=== PATIENT | female | born 1995 | race African-American/Black ===

== ENCOUNTER 2018-04-07 17:29 | Emergency (ER) | payer OTHER, MEDICAID ==
[~2018-04-07] VITALS: Ht 162.6 cm; Wt 81.7 kg
[2018-04-07 19:01] LABS: ABSOLUTE BASOPHILS 0.1 thou/uL (0.0-0.2); ABSOLUTE LYMPHOCYTES 1.3 thou/uL (0.8-5.3); ABSOLUTE MONOCYTES 0.7 thou/uL (0.0-1.2); ABSOLUTE NEUTROPHILS 9.6 thou/uL (1.6-8.1); EOSINOPHILS 0.3 %; HEMATOCRIT 36.6 % (37.0-47.0); HEMOGLOBIN 11.6 gm/dL (12.0-15.0); LYMPHOCYTES 10.8 %; MCH 21.3 pg (26.0-34.0); MCHC 31.7 g/dL (28.0-37.0); MCV 67.2 fL (80.0-100.0); MONOCYTES 5.7 %; MPV 7.4 fl. (7.2-11.1); NUCLEATED RBCS 0 /100WBC; PLATELET COUNT* 391 thou/uL (150-400); POLYS 82.2 %; RBC 5.46 mil/uL (4.20-5.00); RDW-CV 17.7 % (10.5-14.5); WBC 11.7 thou/uL (4.0-11.0)
[2018-04-07 19:06] LABS: CALCIUM 9.4 mg/dL (8.5-10.1); CREATININE 0.9 mg/dL (0.6-1.3); POTASSIUM 4.1 mmol/L (3.5-5.1)
[2018-04-07 19:11] LABS: ALBUMIN 3.5 g/dL (3.4-5.0); TOTAL BILIRUBIN 0.2 mg/dL (<0.1-1.0); TOTAL PROTEIN 8.5 g/dL (6.4-8.2)
[2018-04-07 19:44] LABS: URINE BILIRUBIN NEGATIVE (Negative); URINE BLOOD NEGATIVE (Negative); URINE CLARITY CLEAR; URINE COLOR YELLOW; URINE GLUCOSE-RANDOM NEGATIVE (Negative); URINE KETONES NEGATIVE (Negative); URINE LEUKOCYTES-REFLEX TRACE (Negative); URINE NITRITE-REFLEX NEGATIVE (Negative); URINE PROTEIN 1+ (Negative); URINE SPECIFIC GRAVITY >= 1.030 (1.005-1.030); URINE UROBILINOGEN 0.2 E.U./dl (0.2-1.0)
[2018-04-07 19:51] LABS: SQUAMOUS >10 Many /LPF (0-3)
[2018-04-07 19:52] LABS: CASTS None Seen /LPF (None Seen); CRYSTALS None Seen /LPF (None Seen); MUCUS 0-3 Light strn/LPF (None Seen); URINE RBC None Seen /HPF (0-2); URINE WBC-REFLEX 6-15 Few /HPF (0-5)
[2018-04-07] MEDS ORDERED: SULFAMETHOXAZO473 ML PO (20:13)
[2018-04-07 20:23] LABS: PLATELET ESTIMATE ADEQUATE
[2018-04-07 20:25] LABS: MICROCYTES 2+
[2018-04-07 20:26] LABS: HYPOCHROMASIA 1+
[2018-04-07 20:27] VITALS: BP 136/84
== END 2018-04-07 20:28 | disposition home or self-care (01) ==
LOC: M.ERS 17:29
PROVIDERS: Physician Assistant Surgical
DX: N39.0 Urinary tract infection, site not specified (principal); R19.7 Diarrhea, unspecified; I10 Essential (primary) hypertension; Z88.1 Allergy status to other antibiotic agents

== ENCOUNTER 2018-05-05 15:31 | Emergency (ER) | payer OTHER, MEDICAID ==
[~2018-05-05] VITALS: Ht 162.6 cm; Wt 90.7 kg
[~2018-05-05 15:31] MED LIST: SULFAMETHOXAZO473 ML PO
[2018-05-05] MEDS ORDERED: DEPO-PROVER150 MG/M1 IM (15:45)
[2018-05-05] MEDS ORDERED: LISINOPRIL10 MG PO (15:45)
[2018-05-05 16:08] LABS: URINE BILIRUBIN NEGATIVE (Negative); URINE BLOOD NEGATIVE (Negative); URINE CLARITY HAZY; URINE COLOR YELLOW; URINE GLUCOSE-RANDOM NEGATIVE (Negative); URINE KETONES NEGATIVE (Negative); URINE LEUKOCYTES-REFLEX 1+ (Negative); URINE NITRITE-REFLEX NEGATIVE (Negative); URINE PROTEIN TRACE (Negative); URINE SPECIFIC GRAVITY >= 1.030 (1.005-1.030)
[2018-05-05 16:17] LABS: SQUAMOUS >10 Many /LPF (0-3); URINE RBC None Seen /HPF (0-2); URINE WBC-REFLEX 6-15 Few /HPF (0-5)
[2018-05-05 16:18] LABS: CASTS None Seen /LPF (None Seen); CRYSTALS None Seen /LPF (None Seen); MUCUS 0-3 Light strn/LPF (None Seen)
[2018-05-05 16:36] LABS: ABSOLUTE LYMPHOCYTES 2.9 thou/uL (0.8-5.3); ABSOLUTE MONOCYTES 0.6 thou/uL (0.0-1.2); ABSOLUTE NEUTROPHILS 6.3 thou/uL (1.6-8.1); BASOPHILS 0.4 %; EOSINOPHILS 0.4 %; HEMATOCRIT 34.8 % (37.0-47.0); HEMOGLOBIN 11.1 gm/dL (12.0-15.0); LYMPHOCYTES 29.8 %; MCH 21.3 pg (26.0-34.0); MCHC 31.8 g/dL (28.0-37.0); MCV 66.9 fL (80.0-100.0); MONOCYTES 5.7 %; MPV 7.6 fl. (7.2-11.1); NUCLEATED RBCS 0 /100WBC; PLATELET COUNT* 382 thou/uL (150-400); POLYS 63.7 %; RDW-CV 17.1 % (10.5-14.5); WBC 9.8 thou/uL (4.0-11.0)
[2018-05-05 16:40] LABS: ALBUMIN 3.4 g/dL (3.4-5.0); CALCIUM 9.1 mg/dL (8.5-10.1); POTASSIUM 3.7 mmol/L (3.5-5.1); TOTAL BILIRUBIN 0.1 mg/dL (<0.1-1.0); TOTAL PROTEIN 7.9 g/dL (6.4-8.2)
[2018-05-05 17:09] LABS: ANISOCYTOSIS 1+; HYPOCHROMASIA 1+; MICROCYTES 1+; PLATELET ESTIMATE ADEQUATE
[2018-05-05] MEDS ORDERED: BACTRIM DS TAB1 EACH PO (17:09)
[2018-05-05 17:26] VITALS: BP 141/76
== END 2018-05-05 17:27 | disposition home or self-care (01) ==
LOC: M.ERS 15:31
PROVIDERS: Nurse Practitioner Family
DX: N39.0 Urinary tract infection, site not specified (principal); R19.7 Diarrhea, unspecified; I10 Essential (primary) hypertension; Z88.1 Allergy status to other antibiotic agents

== ENCOUNTER 2018-09-14 17:24 | Emergency (ER) | payer BC, OTHER, MEDICAID ==
[~2018-09-14] VITALS: Ht 160 cm; Wt 95.3 kg
[~2018-09-14 17:24] MED LIST changes: +BACTRIM DS TAB1 EACH PO; +DEPO-PROVER150 MG/M1 IM; +LISINOPRIL10 MG PO
[2018-09-14] MEDS ORDERED: IRON325 PO (17:33)
[2018-09-14 17:57] LABS: ABSOLUTE LYMPHOCYTES 2.7 thou/uL (0.8-5.3); ABSOLUTE MONOCYTES 0.6 thou/uL (0.0-1.2); ABSOLUTE NEUTROPHILS 3.9 thou/uL (1.6-8.1); BASOPHILS 0.3 %; EOSINOPHILS 0.5 %; HEMATOCRIT 39.8 % (37.0-47.0); HEMOGLOBIN 13.5 gm/dL (12.0-15.0); MCH 25.1 pg (26.0-34.0); MCHC 33.9 g/dL (28.0-37.0); MCV 74.2 fL (80.0-100.0); MONOCYTES 8.3 %; MPV 7.6 fl. (7.2-11.1); NUCLEATED RBCS 0 /100WBC; PLATELET COUNT* 355 thou/uL (150-400); POLYS 53.9 %; RBC 5.37 mil/uL (4.20-5.00); RDW-CV 18.5 % (10.5-14.5); WBC 7.3 thou/uL (4.0-11.0)
[2018-09-14 18:09] LABS: INR 0.9; PROTIME 9.7 Seconds (9.20-11.50)
[2018-09-14 18:13] LABS: ALBUMIN 3.3 g/dL (3.4-5.0); ALKALINE PHOSPHATASE 110 U/L (46-116); ANION GAP 9 mmol/L (7-16); BUN 8 mg/dL (7-18); CALCIUM 9.5 mg/dL (8.5-10.1); CHLORIDE 102 mmol/L (98-107); CO2 27 mmol/L (21-32); CREATININE 0.9 mg/dL (0.6-1.3); GLUCOSE 174 mg/dL (70-99); SGOT 18 U/L (15-37); SGPT 26 U/L (30-65); SODIUM 138 mmol/L (136-145); TOTAL PROTEIN 8.2 g/dL (6.4-8.2); TROPONIN-I LEVEL <0.06 ng/mL (<0.06)
[2018-09-14 18:14] LABS: TOTAL BILIRUBIN < 0.1 mg/dL (<0.1-1.0)
[2018-09-14 18:14] LABS: URINE BILIRUBIN NEGATIVE (Negative); URINE BLOOD TRACE (Negative); URINE CLARITY CLEAR; URINE COLOR YELLOW; URINE GLUCOSE-RANDOM NEGATIVE (Negative); URINE KETONES NEGATIVE (Negative); URINE LEUKOCYTES-REFLEX TRACE (Negative); URINE NITRITE-REFLEX NEGATIVE (Negative); URINE PROTEIN 2+ (Negative); URINE UROBILINOGEN 0.2 E.U./dl (0.2-1.0)
[2018-09-14 18:17] LABS: POTASSIUM 2.9 mmol/L (3.5-5.1)
[2018-09-14 18:20] LABS: AMP/METHAMP Negative (Negative); BARBITURATES Negative (Negative); BENZODIAZEPINES Negative (Negative); COCAINE Negative (Negative); METHADONE Negative (Negative); OPIATES Negative (Negative); PCP Negative (Negative); THC Negative (Negative)
[2018-09-14 18:34] LABS: BACTERIA-REFLEX 1-9 Few /HPF (None Seen); CASTS None Seen /LPF (None Seen); CRYSTALS None Seen /LPF (None Seen); SQUAMOUS 4-10 Moderate /LPF (0-3); URINE RBC None Seen /HPF (0-2); URINE WBC-REFLEX 0-5 Rare /HPF (0-5)
[2018-09-14] MEDS ORDERED: POTASSIUM20 PO (19:24)
[2018-09-14 19:50] VITALS: BP 128/78
--- NOTE | 2018-09-15 17:02 | EKG ---
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
== END 2018-09-14 19:50 | disposition home or self-care (01) ==
LOC: M.ERS 17:24
PROVIDERS: Nurse Practitioner Family
DX: E87.6 Hypokalemia (principal); R07.89 Other chest pain; I10 Essential (primary) hypertension; Z88.1 Allergy status to other antibiotic agents; Z86.2 Personal history of diseases of the blood and blood-forming organs and certain disorders involving the immune mechanism

== ENCOUNTER 2019-02-02 11:33 | Emergency (ER) | payer BC ==
[~2019-02-02] VITALS: Ht 162.6 cm; Wt 105.7 kg
[~2019-02-02 11:33] MED LIST changes: +IRON325 PO; +POTASSIUM20 PO
[2019-02-02 12:10] LABS: ABSOLUTE BASOPHILS 0.1 thou/uL (0.0-0.2); ABSOLUTE LYMPHOCYTES 2.3 thou/uL (0.8-5.3); ABSOLUTE MONOCYTES 0.4 thou/uL (0.0-1.2); ABSOLUTE NEUTROPHILS 4.1 thou/uL (1.6-8.1); BASOPHILS 1.1 %; EOSINOPHILS 0.5 %; HEMATOCRIT 42.2 % (37.0-47.0); LYMPHOCYTES 33.5 %; MCH 26.4 pg (26.0-34.0); MCHC 33.1 g/dL (28.0-37.0); MCV 79.9 fL (80.0-100.0); MONOCYTES 5.9 %; MPV 7.2 fl. (7.2-11.1); NUCLEATED RBCS 0 /100WBC; PLATELET COUNT* 379 thou/uL (150-400); RBC 5.28 mil/uL (4.20-5.00); RDW-CV 14.3 % (10.5-14.5); WBC 6.9 thou/uL (4.0-11.0)
[2019-02-02 12:17] LABS: ANION GAP 13 mmol/L (7-16); BUN 7 mg/dL (7-18); CALCIUM 9.3 mg/dL (8.5-10.1); CHLORIDE 103 mmol/L (98-107); CO2 23 mmol/L (21-32); GLUCOSE 100 mg/dL (70-99); POTASSIUM 3.3 mmol/L (3.5-5.1); SODIUM 139 mmol/L (136-145)
[2019-02-02 12:26] LABS: ALBUMIN 3.5 g/dL (3.4-5.0); ALKALINE PHOSPHATASE 121 U/L (46-116); SGOT 14 U/L (15-37); SGPT 22 U/L (30-65); TOTAL BILIRUBIN 0.3 mg/dL (<0.1-1.0); TOTAL PROTEIN 8.3 g/dL (6.4-8.2); TROPONIN-I LEVEL <0.06 ng/mL (<0.06)
[2019-02-02 12:53] LABS: URINE BILIRUBIN NEGATIVE (Negative); URINE BLOOD NEGATIVE (Negative); URINE CLARITY CLEAR; URINE COLOR YELLOW; URINE GLUCOSE-RANDOM NEGATIVE (Negative); URINE KETONES NEGATIVE (Negative); URINE LEUKOCYTES-REFLEX 1+ (Negative); URINE NITRITE-REFLEX NEGATIVE (Negative); URINE PROTEIN 1+ (Negative); URINE UROBILINOGEN 0.2 E.U./dl (0.2-1.0)
[2019-02-02 13:06] LABS: BACTERIA-REFLEX 1-9 Few /HPF (None Seen); CASTS None Seen /LPF (None Seen); CRYSTALS None Seen /LPF (None Seen); MUCUS 0-3 Light strn/LPF (None Seen); SQUAMOUS >10 Many /LPF (0-3); URINE RBC 0-2 Rare /HPF (0-2); URINE WBC-REFLEX 0-5 Rare /HPF (0-5)
[2019-02-02 13:40] LABS: AMP/METHAMP Negative (Negative); BARBITURATES Negative (Negative); BENZODIAZEPINES Negative (Negative); COCAINE Negative (Negative); METHADONE Negative (Negative); OPIATES Negative (Negative); PCP Negative (Negative); THC Negative (Negative)
--- NOTE | 2019-02-02 15:01 | EKG ---
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1995 Requested By: [place] Order Number: [id number] MD: Moisés Oliver Measurements Intervals [place] Rate: 115 P: 61 [place]: 128 QRS: 48 QRSD: 78 T: 19 QT: 321 QTc: 444 Interpretive Statements Sinus tachycardia Probable left atrial enlargement Baseline wander in lead(s) II,III,aVR,aVF,V3,V5 Compared to ECG 09/14/2018 17:29:52 No significant changes Electronically Signed On 02-02-2019 15:01:06 CDT by Moisés Oliver [email or web address] <ELECTRONICALLY SIGNED> By: Moisés Oliver MD, [facility] 02/02/19 1501 1143 1143 Moisés Oliver MD, [facility] /EPI
[2019-02-02 15:15] VITALS: BP 152/80
== END 2019-02-02 15:18 | disposition home or self-care (01) ==
LOC: M.ERS 11:33
PROVIDERS: Emergency Medicine; Nurse Practitioner Family
DX: R07.89 Other chest pain (principal); I10 Essential (primary) hypertension; I35.0 Nonrheumatic aortic (valve) stenosis; Z86.2 Personal history of diseases of the blood and blood-forming organs and certain disorders involving the immune mechanism; Z88.1 Allergy status to other antibiotic agents

== ENCOUNTER 2019-07-21 16:31 | Emergency (ER) | payer BC ==
[~2019-07-21] VITALS: Ht 162.6 cm; Wt 99.8 kg
[2019-07-21 16:45] VITALS: BP 155/104
[2019-07-21] MEDS ORDERED: NORVASC 2.5 MG2.5 M1 PO (16:47)
[2019-07-21] MEDS ORDERED: NORCO 5-325 TA1 EAC1 PO (17:31)
== END 2019-07-21 17:45 | disposition home or self-care (01) ==
LOC: M.ERS 16:31
DX: S93.491A Sprain of other ligament of right ankle, initial encounter (principal); I10 Essential (primary) hypertension; Z86.2 Personal history of diseases of the blood and blood-forming organs and certain disorders involving the immune mechanism; Z88.1 Allergy status to other antibiotic agents; W01.0XXA Fall on same level from slipping, tripping and stumbling without subsequent striking against object, initial encounter; Y93.89 Activity, other specified; Y92.89 Other specified places as the place of occurrence of the external cause; Y99.8 Other external cause status

== ENCOUNTER → 2020-09-12 | Outpatient (CLI) | payer BC ==
[~2020-09-12] MED LIST changes: +NORCO 5-325 TA1 EAC1 PO; +NORVASC 2.5 MG2.5 M1 PO
== END ==
LOC: M.LAB 11:11
PROVIDERS: ATTEND Internal Medicine Gastroenterology
DX: Z32.00 Encounter for pregnancy test, result unknown (principal)

== ENCOUNTER 2021-03-10 23:26 | Emergency (ER) | payer OTHER, MEDICAID ==
[~2021-03-10] VITALS: Ht 162.6 cm; Wt 105.2 kg
[2021-03-11 00:01] LABS: URINE BLOOD NEGATIVE (Negative); URINE CLARITY CLEAR; URINE COLOR DARK YELLOW; URINE GLUCOSE-RANDOM NEGATIVE (Negative); URINE KETONES NEGATIVE (Negative); URINE LEUKOCYTES-REFLEX TRACE (Negative); URINE NITRITE-REFLEX NEGATIVE (Negative); URINE PROTEIN 2+ (Negative); URINE SPECIFIC GRAVITY >= 1.030 (1.005-1.030)
[2021-03-11 00:10] LABS: ABSOLUTE BASOPHILS 0.1 thou/uL (0.0-0.2); ABSOLUTE LYMPHOCYTES 2.4 thou/uL (0.8-5.3); ABSOLUTE MONOCYTES 0.5 thou/uL (0.0-1.2); ABSOLUTE NEUTROPHILS 5.6 thou/uL (1.6-8.1); BASOPHILS 1.2 %; EOSINOPHILS 0.5 %; HEMATOCRIT 36.1 % (37.0-47.0); HEMOGLOBIN 11.5 gm/dL (12.0-15.0); LYMPHOCYTES 27.8 %; MCH 22.6 pg (26.0-34.0); MCV 70.5 fL (80.0-100.0); MONOCYTES 5.3 %; MPV 7.3 fl. (7.2-11.1); NUCLEATED RBCS 0 /100WBC; PLATELET COUNT* 353 thou/uL (150-400); POLYS 65.2 %; RBC 5.12 mil/uL (4.20-5.00); RDW-CV 20.2 % (10.5-14.5); WBC 8.6 thou/uL (4.0-11.0)
[2021-03-11 00:12] LABS: URINE BILIRUBIN 1+ (Negative)
[2021-03-11 00:14] LABS: ICTOTEST (BILI CONFIRMATORY) Positive (Negative)
[2021-03-11 00:20] LABS: CALCIUM 9.3 mg/dL (8.5-10.1); CREATININE 1.1 mg/dL (0.6-1.3); POTASSIUM 3.5 mmol/L (3.5-5.1)
[2021-03-11 00:24] LABS: ALBUMIN 3.7 g/dL (3.4-5.0); TOTAL BILIRUBIN 1.2 mg/dL (<0.1-1.0); TOTAL PROTEIN 8.1 g/dL (6.4-8.2)
[2021-03-11 01:07] LABS: CASTS None Seen /LPF (None Seen); MUCUS 0-3 Light strn/LPF (None Seen); SQUAMOUS 4-10 Moderate /LPF (0-3); URINE WBC-REFLEX 0-5 Rare /HPF (0-5)
[2021-03-11 01:08] LABS: BACTERIA-REFLEX 1-9 Few /HPF (None Seen); CRYSTALS None Seen /LPF (None Seen); URINE RBC 0-2 Rare /HPF (0-2)
[2021-03-11 02:24] LABS: ANISOCYTOSIS 2+; HYPOCHROMASIA 1+; MICROCYTES 2+; PLATELET ESTIMATE ADEQUATE; POLYCHROMASIA 2+
[2021-03-11] MEDS ORDERED: ZOFRAN ODT4 MG PO (03:53)
[2021-03-11] MEDS ORDERED: CARAFATE 1 GM TA1 GM PO (03:53)
[2021-03-11] MEDS ORDERED: HYDROCODON-ACE1 EAC7 PO (03:53)
[2021-03-11 04:16] VITALS: BP 166/88
== END 2021-03-11 04:17 | disposition home or self-care (01) ==
LOC: M.ERS 23:26
PROVIDERS: Personal Emergency Response Attendant
DX: K80.50 Calculus of bile duct without cholangitis or cholecystitis without obstruction (principal); R79.89 Other specified abnormal findings of blood chemistry; I10 Essential (primary) hypertension; Z79.899 Other long term (current) drug therapy; Z88.0 Allergy status to penicillin

== ENCOUNTER 2021-03-25 06:55 | Inpatient (IN) | payer BC, OTHER, MEDICAID ==
[~2021-03-25] VITALS: Ht 162.6 cm; Wt 101.2 kg
--- NOTE | ~2021-03-25 | PROC ---
[address] [address] PROCEDURE REPORT Name: MICHAEL ARVIZU Room: [address] IN M.R.#: [id number] Admission: 03/27/21 Attend Phys: Dieter Durham Discharge: 03/29/21 Date of : [birth year] Report #: [id number] THIS REPORT FOR: cc: Umesh Rowan MD, Kevin R. MD [facility],Medical Records Staff ~ For Gi report, please see the Provation report in Perceptive 7 content. By: 0648Medical Records Staff ABBY /KATARZYNA
--- NOTE | ~2021-03-25 | PROC ---
[address] [address] PROCEDURE REPORT Name: MICHAEL ARVIZU Room: [address] IN M.R.#: [id number] Admission: 03/27/21 Attend Phys: Dieter Durham Discharge: Date of : [birth year] Report #: [id number] THIS REPORT FOR: cc: Umesh Rowan MD, Kevin R. MD [facility],Medical Records Staff ~ For GI report, please see the Provation report in Perceptive 7 content. By: 1351Medical Records Staff RONEY /KATARZYNA
[~2021-03-25 06:55] MED LIST changes: +CARAFATE 1 GM TA1 GM PO; +HYDROCODON-ACE1 EAC7 PO; +NORVASC10 MG PO; +ZOFRAN ODT4 MG PO
[2021-03-25 07:49] LABS: HEMATOCRIT 38.3 % (37.0-47.0); HEMOGLOBIN 12.5 gm/dL (12.0-15.0); MCH 23.5 pg (26.0-34.0); MCHC 32.5 g/dL (28.0-37.0); MCV 72.1 fL (80.0-100.0); MPV 8.5 fl. (7.2-11.1); RBC 5.31 mil/uL (4.20-5.00); RDW-CV 19.5 % (10.5-14.5); WBC 3.6 thou/uL (4.0-11.0)
--- NOTE | 2021-03-25 13:35 | EKG ---
[place] [address] ELECTROCARDIOGRAM REPORT Name: MICHAEL ARVIZU Room: [facility]#: [id number] Admission: 03/25/21 Attend Phys: Rodney Troy Discharge: Date of : [birth year] Date of Service: 03/25/21 0747 Report #: [id number] THIS REPORT FOR: //name// 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1995 Requested By: Rodney Troy Order Number: [id number] Marycruz MD: Moisés Oliver Measurements Intervals [place] Rate: 81 P: 78 [place]: 147 QRS: 137 QRSD: 96 T: 147 QT: 363 QTc: 422 Interpretive Statements Sinus rhythm with first degree AV block Right axis deviation Nonspecific T abnormalities, lateral leads Compared to ECG 02/02/2019 11:43:00 Right-axis deviation now present T-wave abnormality now present Sinus tachycardia no longer present Electronically Signed On 03-25-2021 13:35:15 CDT by Moisés Oliver [email or web address] <ELECTRONICALLY SIGNED> By: Moisés Oliver MD, FACC 03/25/21 1335 0747 Moisés Oliver MD, FACC /EPI
[2021-03-25 13:43] VITALS: BP 112/61
[2021-03-25 18:00] VITALS: BP 102/64
[2021-03-25 20:03] VITALS: BP 100/61
[2021-03-26] VITALS: BP 110/70
[2021-03-26 04:37] VITALS: BP 99/62
[2021-03-26 05:07] LABS: PROTIME 10.7 Seconds (9.20-11.50)
[2021-03-26 05:19] LABS: ALBUMIN 2.9 g/dL (3.4-5.0); CALCIUM 8.9 mg/dL (8.5-10.1); MAGNESIUM 1.9 mg/dL (1.8-2.4); PHOSPHORUS* 4.4 mg/dL (2.5-4.9); POTASSIUM 3.5 mmol/L (3.5-5.1); TOTAL BILIRUBIN 1.3 mg/dL (<0.1-1.0); TOTAL PROTEIN 6.7 g/dL (6.4-8.2)
[2021-03-26 05:24] LABS: ABSOLUTE MONOCYTES 0.7 thou/uL (0.0-1.2); ABSOLUTE NEUTROPHILS 4.9 thou/uL (1.6-8.1); BASOPHILS 0.4 %; HEMATOCRIT 29.8 % (37.0-47.0); LYMPHOCYTES 14.9 %; MCH 23.9 pg (26.0-34.0); MCHC 32.7 g/dL (28.0-37.0); MCV 73.2 fL (80.0-100.0); MONOCYTES 10.3 %; MPV 8.9 fl. (7.2-11.1); NUCLEATED RBCS 0 /100WBC; POLYS 74.4 %; RBC 4.07 mil/uL (4.20-5.00); RDW-CV 19.9 % (10.5-14.5); WBC 6.6 thou/uL (4.0-11.0)
[2021-03-26 05:26] LABS: HEMOGLOBIN 9.7 gm/dL (12.0-15.0); PLATELET COUNT* 384 thou/uL (150-400)
[2021-03-26 06:56] VITALS: BP 125/56
[2021-03-26 08:00] VITALS: BP 104/57
[2021-03-26 14:40] LABS: HEMATOCRIT 26.6 % (37.0-47.0); HEMOGLOBIN 8.6 gm/dL (12.0-15.0)
[2021-03-26 21:03] VITALS: BP 115/73
[2021-03-26 23:54] VITALS: BP 104/57
[2021-03-27 04:02] LABS: ABSOLUTE MONOCYTES 0.8 thou/uL (0.0-1.2); ABSOLUTE NEUTROPHILS 5.5 thou/uL (1.6-8.1); BASOPHILS 0.1 %; HEMATOCRIT 22.7 % (37.0-47.0); HEMOGLOBIN 7.3 gm/dL (12.0-15.0); LYMPHOCYTES 13.3 %; MCH 23.7 pg (26.0-34.0); MCV 74.1 fL (80.0-100.0); MONOCYTES 10.6 %; MPV 8.6 fl. (7.2-11.1); NUCLEATED RBCS 0 /100WBC; RBC 3.06 mil/uL (4.20-5.00); RDW-CV 19.1 % (10.5-14.5); WBC 7.3 thou/uL (4.0-11.0)
[2021-03-27 04:08] VITALS: BP 107/54
[2021-03-27 04:18] LABS: PLATELET COUNT* 242 thou/uL (150-400)
[2021-03-27 04:23] LABS: ALBUMIN 2.5 g/dL (3.4-5.0); DIRECT BILIRUBIN 0.7 mg/dL (<0.1-0.3); TOTAL BILIRUBIN 0.9 mg/dL (<0.1-1.0); TOTAL PROTEIN 5.5 g/dL (6.4-8.2)
[2021-03-27 04:33] LABS: ALBUMIN 2.4 g/dL (3.4-5.0); CALCIUM 8.4 mg/dL (8.5-10.1); CREATININE 0.8 mg/dL (0.6-1.3); POTASSIUM 3.9 mmol/L (3.5-5.1); TOTAL BILIRUBIN 0.8 mg/dL (<0.1-1.0); TOTAL PROTEIN 5.9 g/dL (6.4-8.2)
[2021-03-27 09:00] VITALS: BP 117/65
[2021-03-27 13:19] LABS: HEMATOCRIT 22.4 % (37.0-47.0); HEMOGLOBIN 7.2 gm/dL (12.0-15.0)
[2021-03-27 15:40] VITALS: BP 101/62
[2021-03-27 20:00] VITALS: BP 112/69
[2021-03-27 23:49] VITALS: BP 112/67
[2021-03-28 03:42] VITALS: BP 107/63
[2021-03-28 04:30] LABS: ABSOLUTE LYMPHOCYTES 1.7 thou/uL (0.8-5.3); ABSOLUTE MONOCYTES 0.5 thou/uL (0.0-1.2); ABSOLUTE NEUTROPHILS 3.1 thou/uL (1.6-8.1); BASOPHILS 0.4 %; EOSINOPHILS 0.7 %; HEMATOCRIT 21.2 % (37.0-47.0); MCH 24.1 pg (26.0-34.0); MCHC 32.1 g/dL (28.0-37.0); MONOCYTES 9.3 %; MPV 8.4 fl. (7.2-11.1); NUCLEATED RBCS 0 /100WBC; PLATELET COUNT* 259 thou/uL (150-400); POLYS 57.6 %; RBC 2.83 mil/uL (4.20-5.00); RDW-CV 19.8 % (10.5-14.5); WBC 5.3 thou/uL (4.0-11.0)
[2021-03-28 04:45] LABS: CALCIUM 8.6 mg/dL (8.5-10.1); CREATININE 0.8 mg/dL (0.6-1.3); PHOSPHORUS* 2.9 mg/dL (2.5-4.9); POTASSIUM 3.3 mmol/L (3.5-5.1)
[2021-03-28 05:49] LABS: HEMOGLOBIN 6.8 gm/dL (12.0-15.0)
[2021-03-28 09:22] VITALS: BP 120/72; BP 121/79; BP 126/71; BP 129/76
[2021-03-28 09:49] VITALS: BP 120/72
--- NOTE | 2021-03-28 10:30 | PATH ---
[facility] [address] [place] [address] PATHOLOGY RPT PROCEDURE Name: MICHAEL ARVIZU Room: [address] IN .R.#: [id number] Admission: 03/27/21 Date of : [birth year] Discharge: Report #: [id number] Path Case #: [id number] [facility] Accession Number: [id number] . 01 Material submitted: . gallbladder - GALLBLADDER . 01 Clinical history: . LAPAROSCOPIC CHOLECYSTECTOMY WITH GRAMS HYPERBILIRUBINEMIA, CILIARY DYSKINESIA . 02 Diagnosis: Gallbladder, excision: - Mild chronic cholecystitis; negative for malignancy. - Lithiasis. (MLK:rajendra; 03/27/2021) QMS 03/27/2021 [facility]7 Local . 02 Electronically signed: . Igor Blue MD, Pathologist NPI- [id number] . 01 Gross description: . Fixative: Formalin Labeled: Gallbladder Specimen received: Intact gallbladder Dimensions: 7.3 x 3.3 x 3.0 cm Serosa: [place]-oquendo to pink-sloan Lymph node: Not identified Mucosa: Velvety, bile-stained Average wall thickness: 0.1 cm Calculi: Identified displaying a bright yellow and multifaceted appearance Abnormalities: None identified . Loader Machine body, fundus, and the cystic duct margin in cassette A1. (CAA; 03/26/2021) QA/[facility] 03/26/2021 0953 Local . 02 Pathologist provided ICD-10: K80.10 . 02 CPT . 007076 Specimen Comment: A courtesy copy of this report has been sent to [phone] Specimen Comment: [id number] Specimen Comment: Report sent to / DR CHAVEZ Specimen Comment: A duplicate report has been [place] [address] PATHOLOGY RPT PROCEDURE Name: MICHAEL ARVIZU Room: [address] IN [facility]#: [id number] Admission: 03/27/21 Date of : [birth year] Discharge: Report #: [id number] Path Case #: [id number] updates. Performed at: 01 [facility] [address] [id number] MD Manish Mcclain MD Phone: [phone] Performed at: [address] [facility] [address] [id number] MD Sam Hahn MD Phone: [phone]
[2021-03-28 14:41] LABS: HEMATOCRIT 26.3 % (37.0-47.0); HEMOGLOBIN 8.5 gm/dL (12.0-15.0)
[2021-03-28 20:00] VITALS: BP 107/61
[2021-03-28 23:51] VITALS: BP 114/73
[2021-03-29 04:00] VITALS: BP 111/70
[2021-03-29 04:13] LABS: ABSOLUTE EOSINOPHILS 0.1 thou/uL (0.0-0.7); ABSOLUTE LYMPHOCYTES 1.3 thou/uL (0.8-5.3); ABSOLUTE MONOCYTES 0.7 thou/uL (0.0-1.2); ABSOLUTE NEUTROPHILS 4.4 thou/uL (1.6-8.1); BASOPHILS 0.2 %; EOSINOPHILS 1.7 %; HEMATOCRIT 24.8 % (37.0-47.0); HEMOGLOBIN 8.1 gm/dL (12.0-15.0); LYMPHOCYTES 20.2 %; MCH 24.7 pg (26.0-34.0); MCHC 32.6 g/dL (28.0-37.0); MCV 75.8 fL (80.0-100.0); MONOCYTES 10.3 %; MPV 8.1 fl. (7.2-11.1); NUCLEATED RBCS 0 /100WBC; PLATELET COUNT* 283 thou/uL (150-400); POLYS 67.6 %; RBC 3.27 mil/uL (4.20-5.00); RDW-CV 18.6 % (10.5-14.5); WBC 6.6 thou/uL (4.0-11.0)
[2021-03-29 04:27] LABS: ALBUMIN 2.7 g/dL (3.4-5.0); CALCIUM 8.8 mg/dL (8.5-10.1); CREATININE 0.9 mg/dL (0.6-1.3); MAGNESIUM 1.9 mg/dL (1.8-2.4); PHOSPHORUS* 2.9 mg/dL (2.5-4.9); POTASSIUM 3.7 mmol/L (3.5-5.1); TOTAL BILIRUBIN 1.2 mg/dL (<0.1-1.0); TOTAL PROTEIN 6.5 g/dL (6.4-8.2)
[2021-03-29 12:11] LABS: HEMATOCRIT 27.4 % (37.0-47.0); HEMOGLOBIN 8.9 gm/dL (12.0-15.0)
[2021-03-29 14:03] VITALS: BP 111/70
--- NOTE | 2021-03-29 16:33 | OP ---
[facility] [address] [place] [address] OPERATIVE REPORT Name: LUHIVONNEMauri Garcias Room: [address] IN M.R.#: [id number] Admission: 03/27/21 Attend Phys: Dieter Durham Discharge: 03/29/21 Date of : [birth year] Report #: [id number] THIS REPORT FOR: cc: Umesh Rowan MD, Kevin R. MD Gazzetta, Joshua D. DO ~ DATE OF SURGERY: 03/25/2021 SURGEON: Rodney Troy DO RAILROAD TRACK MECHANIC: Dr. Travon Cummings. PREOPERATIVE DIAGNOSES: Transaminitis, biliary colic. POSTOPERATIVE DIAGNOSES: Transaminitis, biliary colic, and choledocholithiasis. PROCEDURE PERFORMED: Laparoscopic cholecystectomy with intraoperative cholangiogram. INDICATIONS: The patient presented to the office with complaints of right upper quadrant pain associated with meals. History of present illness, physical exam and imaging are consistent with biliary colic. She did have elevated liver enzymes and intraoperative cholangiogram was also discussed. We discussed the risks, benefits and alternatives to surgery. Risks of bleeding, infection, and damage to nearby structures including the bowel and biliary tree were described. The patient voiced complete understanding and elected to proceed. OPERATIVE DESCRIPTION: The patient was taken to the operating theater and placed in the supine position. Bilateral SCDs were placed and preoperative antibiotics were given. General anesthesia was induced without complication. The patient's abdomen was prepped and draped in the standard sterile fashion. A timeout was performed and all were in agreement. We began by making an infraumbilical curvilinear incision using 11 blade scalpel. Dissection was carried down to the midline fascia using S retractors and electrocautery. Once the midline fascia was appreciated, it was elevated into the surgical field using Mare clamps and scored with electrocautery. The abdomen was entered bluntly using a hemostat. 0 Vicryl stay sutures were placed on either edge of the fascia and a Amanda trocar was introduced. Pneumoperitoneum was established. The patient was placed in the head up, left side down position. A 5 mm subxiphoid trocar was placed under direct visualization. Two other 5 mm trocars in the right upper quadrant were placed under direct visualization. Using the music library assistant port, the gallbladder was grasped and elevated towards the anterior abdominal wall. Gallbladder was very distended and filled with gallstones. Next, Robson's pouch was grasped and taken medially and cephalad and lateral peritoneum of the gallbladder was scored with electrocautery. The peritoneal incision was carried laterally towards the [place] [address] OPERATIVE REPORT Name: MICHAEL ARVIZU Room: [address] IN M.R.#: [id number] Admission: 03/27/21 Attend Phys: Dieter Durham Discharge: 03/29/21 Date of : [birth year] Report #: [id number] Robson's pouch along the medial aspect of the gallbladder. Using blunt dissection, the peritoneum was pushed down on the lateral medial aspect and the hepatocystic triangle was cleared of fibrofatty tissue. The cystic duct and cystic artery were clearly seen. These were skeletonized using a [place] dissector. Critical view of safety was obtained. There were 2 structures and only 2 structures entering the gallbladder, the cystic duct and cystic artery. The hepatic plate could be seen from the medial and lateral aspect through the hepatocystic triangle. Next, Rader clamp was introduced and grasped Robson's pouch. A cholangiocatheter was introduced into the distal cystic duct. Fluoroscopy was used to perform a cholangiogram. The contrast was injected. The cystic duct was large. The entire biliary tree was dilated. There was a filling defect in the right hepatic and distal common bile duct. Minimal to no contrast entered the duodenum. This is a positive IOC. Next, the Rader clamp was removed along with the cholangiocatheter. The cystic artery was clipped once proximally and once distally and cut with EndoShears. The cystic duct could not be clipped due to its size with a 5 mm clip clerical adviser. The subxiphoid port was upsized to an 11 mm port and a 10 mm clip clerical adviser was attempted. This again did not completely occlude the duct. At this point, the distal cystic duct was cut with EndoShears and 2 PDS Endoloops were placed around the cystic duct. The Robson's pouch was then grasped and taken towards the anterior abdominal wall and the gallbladder was dissected free from the gallbladder fossa using electrocautery. Gallbladder was placed into an EndoCatch bag and placed in the side. Hemostasis was obtained with electrocautery. There was one area that was oozing on the right superior portion of the gallbladder fossa. A small artery could be seen. This was dissected free using a [place] grasper and clipped. Hemostasis was achieved. There was a small area of oozing in the left superior portion of the gallbladder fossa, so a piece of Surgicel was placed. The gallbladder fossa was hemostatic. The clips and Endoloops were viewed. There was no bile or blood leakage. The right upper quadrant was slightly irrigated and suctioned dry. The effluent was clear. The patient was placed in the neutral position. The 5 mm trocars were removed under direct visualization. A PMI device and 0 Vicryl used to close the subxiphoid port. Next, the Amanda trocar, the gallbladder and EndoCatch bag were removed through the midline. The abdomen was completely desufflated. The midline fascia was closed using 0 Vicryl in a [id number]-[id number]-pxdxm fashion. All skin incisions were closed using a 4-0 Monocryl in interrupted inverted fashion and dressed with Dermabond. This concluded the procedure. All sponge, needle and instrument counts were correct x 2. ESTIMATED BLOOD LOSS: 20 mL. COMPLICATIONS: None. FINDINGS: Choledocholithiasis, dilated biliary tree, [place] [address] OPERATIVE REPORT Name: MICHAEL ARVIZU Room: [address]#: [id number] Admission: 03/27/21 Attend Phys: Dieter Durham Discharge: 03/29/21 Date of : [birth year] Report #: [id number] SPECIMENS: Gallbladder. DISPOSITION: The patient was extubated successfully in the operating theater and taken to the PACU in stable condition. <ELECTRONICALLY SIGNED> By: Rodney Troy DO 03/29/21 1633 1852 1935Jobarbra Troy DO /nt
== END 2021-03-29 14:20 | disposition home or self-care (01) | DRG 418 ==
LOC: M.SUR 06:55 → M.TBA 13:27 → M.SUR 13:32 → M.3W 13:52
PROVIDERS: Internal Medicine Gastroenterology; Surgery; ADMIT Surgery; ATTEND Surgery
DX: K80.70 Calculus of gallbladder and bile duct without cholecystitis without obstruction (principal); D62 Acute posthemorrhagic anemia; E66.01 Morbid (severe) obesity due to excess calories; R74.01 Elevation of levels of liver transaminase levels; E80.6 Other disorders of bilirubin metabolism; Z20.822 Contact with and (suspected) exposure to COVID-19; K44.9 Diaphragmatic hernia without obstruction or gangrene; I10 Essential (primary) hypertension; Z88.8 Allergy status to other drugs, medicaments and biological substances; Z68.38 Body mass index [BMI] 38.0-38.9, adult

== ENCOUNTER 2021-07-22 13:19 | Emergency (ER) | payer BC, OTHER, MEDICAID ==
[~2021-07-22] VITALS: Ht 162.6 cm; Wt 107.0 kg
[2021-07-22 14:04] LABS: ABSOLUTE BASOPHILS 0.1 thou/uL (0.0-0.2); ABSOLUTE EOSINOPHILS 0.1 thou/uL (0.0-0.7); ABSOLUTE LYMPHOCYTES 2.4 thou/uL (0.8-5.3); ABSOLUTE MONOCYTES 0.4 thou/uL (0.0-1.2); ABSOLUTE NEUTROPHILS 4.6 thou/uL (1.6-8.1); BASOPHILS 1.4 %; EOSINOPHILS 0.8 %; HEMATOCRIT 38.6 % (37.0-47.0); HEMOGLOBIN 12.8 gm/dL (12.0-15.0); LYMPHOCYTES 31.7 %; MCH 24.1 pg (26.0-34.0); MCV 72.9 fL (80.0-100.0); MPV 7.3 fl. (7.2-11.1); NUCLEATED RBCS 0 /100WBC; PLATELET COUNT* 291 thou/uL (150-400); POLYS 61.1 %; RDW-CV 18.3 % (10.5-14.5); WBC 7.6 thou/uL (4.0-11.0)
[2021-07-22 14:12] LABS: CALCIUM 8.6 mg/dL (8.5-10.1); CREATININE 0.8 mg/dL (0.6-1.3)
[2021-07-22 14:21] LABS: ALBUMIN 3.3 g/dL (3.4-5.0); TOTAL BILIRUBIN 0.2 mg/dL (<0.1-1.0); TOTAL PROTEIN 7.6 g/dL (6.4-8.2)
[2021-07-22 14:30] LABS: URINE BILIRUBIN NEGATIVE (Negative); URINE BLOOD NEGATIVE (Negative); URINE CLARITY CLEAR; URINE COLOR YELLOW; URINE GLUCOSE-RANDOM NEGATIVE (Negative); URINE KETONES NEGATIVE (Negative); URINE LEUKOCYTES-REFLEX NEGATIVE (Negative); URINE NITRITE-REFLEX NEGATIVE (Negative); URINE PROTEIN NEGATIVE (Negative); URINE SPECIFIC GRAVITY 1.025 (1.005-1.030); URINE UROBILINOGEN 0.2 E.U./dl (0.2-1.0)
[2021-07-22 15:40] VITALS: BP 129/85
--- NOTE | 2021-07-23 11:06 | EKG ---
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 : 1995 Requested By: Ruth Ann Villatoro Order Number: [id number] MD: Ajay Mcwilliams Measurements Intervals [place] Rate: 86 P: 45 NM: 146 QRS: 43 QRSD: 81 T: 34 QT: 366 QTc: 438 Interpretive Statements Sinus rhythm Compared to ECG 03/25/2021 07:47:19 First degree AV block no longer present Right-axis deviation no longer present T-wave abnormality no longer present Electronically Signed On 07-23-2021 11:05:52 [employer]CHIT[employer] by Ajay Mcwilliams [email or web address] <ELECTRONICALLY SIGNED> By: Ajay Mcwilliams MD, [facility] 07/23/21 1105 1444 1444 Ajay Mcwilliams MD, [facility] /EPI
== END 2021-07-22 15:39 | disposition home or self-care (01) ==
LOC: M.ERS 13:19
PROVIDERS: Student in an Organized Health Care Education/Training Program
DX: R42 Dizziness and giddiness (principal); E87.6 Hypokalemia; I10 Essential (primary) hypertension; Z87.42 Personal history of other diseases of the female genital tract; Z98.890 Other specified postprocedural states; Z79.899 Other long term (current) drug therapy; Z88.1 Allergy status to other antibiotic agents

== ENCOUNTER 2021-07-31 00:57 | Emergency (ER) | payer BC, OTHER, MEDICAID ==
[~2021-07-31] VITALS: Ht 162.6 cm; Wt 107.0 kg
[2021-07-31 02:49] VITALS: BP 154/90
== END 2021-07-31 02:49 | disposition home or self-care (01) ==
LOC: M.ERS 00:57
DX: S93.401A Sprain of unspecified ligament of right ankle, initial encounter (principal); I10 Essential (primary) hypertension; Z79.899 Other long term (current) drug therapy; Z88.0 Allergy status to penicillin; W01.0XXA Fall on same level from slipping, tripping and stumbling without subsequent striking against object, initial encounter; Y93.89 Activity, other specified; Y92.89 Other specified places as the place of occurrence of the external cause; Y99.8 Other external cause status